=== PATIENT | male | born 2000 | race Two or more races ===

== ENCOUNTER 2023-02-11 03:57 | Emergency (ER) | payer OTHER, BC ==
[2023-02-11] MEDS ORDERED: Morphine 4 MG/ML Syringe IVPUSH ONE (04:22)
[2023-02-11] MEDS ORDERED: Ondansetron 8 MG in Sodium Chloride 0.9% 50 ML IV ONE (04:23)
[2023-02-11 04:27] LABS: BASOPHILS ABSOLUTE AUTO 0.03 K/mm3 (0.01-0.08); BASOPHILS PERCENT AUTO 0.4 % (0.1-1.2); EOSINOPHILS ABSOLUTE AUTO 0.45 K/mm3 (0.04-0.54); EOSINOPHILS PERCENT AUTO 6.3 (0.8-7.0); HEMATOCRIT 48.7 % (40.1-51.0); HEMOGLOBIN 16.7 gm/dl (13.7-17.5); IMMATURE GRAN ABSOLUTE AUTO 0.02 K/mm3 (0.00-0.10); IMMATURE GRAN PERCENT AUTO 0.3 % (<=1.0); LYMPHOCYTES ABSOLUTE AUTO 2.31 K/mm3 (1.32-3.57); LYMPHOCYTES PERCENT AUTO 32.5 % (21.8-53.1); MEAN CORPUSCULAR HEMOGLOBIN 28.2 pg (25.7-32.2); MEAN CORPUSCULAR HGB CONC 34.3 g/dl (32.2-35.5); MEAN CORPUSCULAR VOLUME 82.1 fl (79.0-92.2); MEAN PLATELET VOLUME 9.1 fl (9.4-12.3); MONOCYTES ABSOLUTE AUTO 0.93 K/mm3 (0.30-0.82); MONOCYTES PERCENT AUTO 13.1 % (5.3-12.2); NEUTROPHILS ABSOLUTE AUTO 3.37 K/mm3 (1.78-5.38); NEUTROPHILS PERCENT AUTO 47.4 % (34.0-67.9); PLATELET COUNT,PLT 220 K/mm3 (163-337); RED BLOOD CELL COUNT 5.93 M/mm3 (4.63-6.08); WHITE BLOOD CELL COUNT,WBC 7.11 K/mm3 (4.23-9.07)
[2023-02-11] MEDS ORDERED: Ondansetron 4 MG/2 ML SDV IVPUSH ONE (04:37)
[2023-02-11 04:50] LABS: A/G RATIO 1.3 (1-2); ALBUMIN 4.4 g/dl (3.4-5.0); ANION GAP 14.7 (5-15); BILIRUBIN TOTAL 0.8 mg/dL (0.2-1.0); BUN/CREATININE RATIO 9.2 (14-18); CALCIUM 9.1 mg/dL (8.5-10.1); CREATININE 1.3 mg/dL (0.7-1.3); EST CRCL DRUG DOSING (CG) 86.96 mL/min; POTASSIUM,K 3.7 mEq/L (3.5-5.1); PROTEIN TOTAL,TP 7.9 g/dl (6.4-8.2)
== END 2023-02-11 05:53 | disposition home or self-care (01) ==
LOC: JD.ED 03:57
DX: K21.00 Gastro-esophageal reflux disease with esophagitis, without bleeding (principal)
CPT/HCPCS: 36415; 74177; 80053; 82150; 85025; 96374; 96375; 99284; J2270; J2405